=== PATIENT | male | born 1985 | race Caucasian/White ===

== ENCOUNTER 2023-09-21 20:20 | Emergency (ER) | payer OTHER, SELFPAY ==
--- NOTE | ~2023-09-21 | CT_ITS ---
EXAMINATION: CT ANGIOGRAM BRAIN, HEAD CLINICAL INFORMATION: Headaches with exertion COMPARISON: None. TECHNIQUE: Initial noncontrast head CT was performed. Test bolus sequences followed by intravenous administration 75 mL of Omnipaque 350. Helical imaging was performed in the axial plane from the skull base to the skull vertex. Delayed postcontrast imaging of the head was also performed. The data was processed at the ct mri technologist's workstation for generation of MIP sequences. Angled MIPs and volume rendered reformatted images were also generated at an offline 3D workstation. Stenoses are assessed in accordance with NASCET criteria unless otherwise indicated. DOSE LOWERING TECHNIQUES: This CT examination was performed using dose optimization techniques as appropriate, variously including the following: - Automated exposure control - Adjustment of mA and/or kV according to patient size (this includes techniques or standardized protocols for targeted exams were dose is matched to indication/reason for exam; i.e. extremities or head) - Use of iterative reconstruction technique DLP: 2397 mGy-cm FINDINGS: Brain CTA: There is normal opacification of major intracranial arteries. No focal flow-limiting stenosis, discrete proximal large artery occlusion, or saccular intradural aneurysm. Normal appearance of the intradural vertebral arteries. Normal appearance of the basilar and superior cerebellar arteries. Normally opacified posterior cerebral arteries bilaterally. Normal appearance of the intradural internal carotid arteries without focal stenosis. Normal appearance of the anterior cerebral and middle cerebral arteries without focal occlusion or stenosis. Normal anterior communicating artery. Normal arborization of the middle cerebral arteries. CT Head: No intracranial mass, hemorrhage, extra-axial collection, or midline shift. The lowery-white matter differentiation is preserved. No pathologic intra-axial enhancement or regional oligemia. No hydrocephalus. The mastoid air cells and paranasal sinuses remain well aerated. CT/CT angio head IMPRESSION: No acute intracranial findings. No vascular abnormality identified.
--- NOTE | 2023-09-21 20:38 | ED_ITS ---
HPI - Headache General Chief Complaint: Headache Stated Complaint: Severe headache for the past Time Seen by Provider: 09/22/23 01:58 Related Data Previous Rx's Medication Instructions Recorded ibuprofen 400 mg tablet 400 mg PO Q6H PRN pain #20 tabs 09/22/23 Allergies Allergy/AdvReac Type Severity Reaction Status Date / Time No Known Allergies Allergy Verified 09/21/23 20:50 [facility] Social History Advance Directives: No Advance Directives Information Provided: No Physical Exam 2 Vital Signs: Vital Signs: Last Vital Signs Temp 98.0 F 09/22/23 00:10 Pulse 56 09/22/23 00:10 Resp 20 09/22/23 00:10 BP 156/67 H 09/22/23 00:10 Pulse Ox 98 09/22/23 00:10 O2 Del Method Room Air 09/22/23 00:10 BMI result Body Mass Index 26.8 Course Course Course Narrative: This is an RME: Additional HPI, ROS, PE not included below will be deferred to primary provider. This is a [id number] presenting to the ER with complaints of episodic severe headache x 4 days. Patient states that he has had intermittent headaches. He states that on Wednesday he had a total of 4 headaches. He states that the headache got severe during intercourse. He states that he had difficulty walking at that time due to the pain which resolved after 2 hours. He states that he also has had severe pain with lifting heavy weights at the gym. He also noticed yesterday the headache got severe again during intercourse. 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 NIH score is 0. No recent headache or trauma. He is not on blood thinners. He is not on antibiotics steroids, no drug use or alcohol use. Plan: Basic labs. I discussed case with my attending physician Dr. Cain, will order CT angio of the head. >Please see full note from Dr. Man for further details. Medications Administered Discontinued Medications Generic Name Dose Route Start Last Admin Trade Name Freq PRN Reason Stop Dose Admin Iohexol 75 ml 09/22/23 04:02 09/22/23 04:02 Iohexol 350 Mg/Ml 100 Ml Infus..Btl IV 09/22/23 04:03 75 ml ONCE ONE Administration Medical Decision Making Lab Data 09/21/23 21:38 09/21/23 21:38 Labs: Lab Results 09/21/23 Range/Units 21:38 WBC 8.2 (4.8-10.8) X10*3/uL RBC 4.87 (4.60-5.80) X10*6/uL Hgb 15.6 (14.0-18.0) g/dl Hct 43.8 (42.0-52.0) % MCV 89.9 (80.0-98.0) fL MCH 32.0 (27.0-33.0) pg MCHC 35.6 (31.0-36.0) g/dl RDW 12.1 (11.0-16.0) % Plt Count 215 (160-400) X10*3/uL MPV 9.2 L (9.4-12.4) fL Immature Gran % (Auto) 0.1 (0.0-0.4) % Neut % (Auto) 48.6 (45-73) % Lymph % (Auto) 36.1 (20-40) % [place] % (Auto) 7.8 (2-11) % Eos % (Auto) 6.8 H (0-4) % Baso % (Auto) 0.6 (0-2) % Lymph # (Auto) 3.0 (1.2-4.9) X10*3/uL [place] # (Auto) 0.6 (0.1-1.2) X10*3/uL Eos # (Auto) 0.6 H (0.0-0.4) X10*3/uL Baso # (Auto) 0.1 (0.0-0.2) X10*3/uL Abs Immat Gran (auto) 0.01 (0.00-0.03) X10*3/uL Absolute Neuts (auto) 4.0 (2.0-8.3) x10*3/uL Absolute Nucleated RBC 0.000 (0.0-0.012) X10*3/uL Nucleated RBC % (auto) 0.0 (0.0-0.2) /100WBC Sodium 141 (135-145) mmol/L Potassium 3.8 (3.3-5.1) mmol/L Chloride 103 (96-108) mmol/L Carbon Dioxide 30 H (22-29) mmol/L Anion Gap 12 (12-20) BUN 11 (9-16) mg/dL Creatinine 1.09 (0.5-1.4) mg/dL Estim Creat Clear Calc 82.1 Estimated GFR > 60 Random Glucose 102 (60-115) mg/dL Calcium 9.6 (8.4-10.2) mg/dL Total Bilirubin 0.5 (0.0-1.0) mg/dL Direct Bilirubin 0.2 (0.0-0.5) mg/dL AST 29 (5-37) U/L ALT 41 H (0-40) U/L Alkaline Phosphatase 53 (39-117) U/L Total Protein 7.4 (6.5-8.0) g/dL Albumin 4.6 (3.5-5.0) g/dL Discharge Plan Discharge Clinical Impression: Headache Patient Disposition: Home, Self-Care Instructions: Acute Headache (DC) Prescriptions: New ibuprofen 400 mg tablet 400 mg PO Q6H PRN (Reason: pain) Qty: 20 0RF Referrals: Physician,Unknown J [Primary Care Provider] - 09/24/23 Interventions: ED Discharge Assessment Last Done: 09/22/23 06:35 Discharge Date/Time: 09/22/23 06:39
[2023-09-21 20:41] VITALS: BP 157/98; PULSE 69; RESP 20; TEMP 36.7; O2SAT 98; BMI 26.8
[2023-09-21 21:43] LABS: MANUAL DIFF FLAG NO
[2023-09-21 21:45] LABS: Basophils Absolute Auto 0.1 X10*3/uL (0.0-0.2); Basophils Percent Auto 0.6 % (0-2); Eosinophils Absolute Auto 0.6 X10*3/uL (0.0-0.4); Eosinophils Percent Auto 6.8 % (0-4); Hematocrit 43.8 % (42.0-52.0); Hemoglobin 15.6 g/dl (14.0-18.0); Imm Gran Abs Auto 0.01 X10*3/uL (0.00-0.03); Imm Gran Pct Auto 0.1 % (0.0-0.4); Lymphocytes Percent Auto 36.1 % (20-40); Mean Corpuscular HGB Conc 35.6 g/dl (31.0-36.0); Mean Corpuscular Volume 89.9 fL (80.0-98.0); Mean Platelet Volume 9.2 fL (9.4-12.4); Monocytes Absolute Auto 0.6 X10*3/uL (0.1-1.2); Monocytes Percent Auto 7.8 % (2-11); Neutrophils Percent Auto 48.6 % (45-73); Platelet Count 215 X10*3/uL (160-400); Red Blood Count 4.87 X10*6/uL (4.60-5.80); Red Cell Distribution Width 12.1 % (11.0-16.0); White Blood Count 8.2 X10*3/uL (4.8-10.8)
[2023-09-21 21:58] LABS: Alanine Aminotransferase 41 U/L (0-40); Albumin Level 4.6 g/dL (3.5-5.0); Alkaline Phosphatase 53 U/L (39-117); Anion Gap 12 (12-20); Aspartate Amino Transferase 29 U/L (5-37); Bilirubin Direct 0.2 mg/dL (0.0-0.5); Bilirubin Total 0.5 mg/dL (0.0-1.0); Blood Urea Nitrogen 11 mg/dL (9-16); Calcium 9.6 mg/dL (8.4-10.2); Carbon Dioxide 30 mmol/L (22-29); Chloride 103 mmol/L (96-108); Creatinine Clr Calc Pharmacy 82.1; Estimated Glomerular Filt Rate > 60; Glucose Random 102 mg/dL (60-115); Potassium 3.8 mmol/L (3.3-5.1); Sodium 141 mmol/L (135-145); Total Protein 7.4 g/dL (6.5-8.0)
[2023-09-22 00:10] VITALS: BP 156/67; PULSE 56; RESP 20; TEMP 36.7; O2SAT 98
--- OUTSIDE RECORDS SUMMARY | 2023-09-22 02:09 | XMS_ITS | Continuity of Care Document ---
Author Name Unknown Organization [facility] ter Address [address] [place] [id number]- Care Team Providers Care Rn Cardiac Name Role Phone Not on Staff, PCP Primary Care Physician Unavail able Encounter [facility] Date(s): 10/14/22 - 10/14/[address] [address]- Discharge Disposition: A-D/C Walkout Attending Physician: Not on Staff, Attending MD Admitting Physician: Not on Staff, Admitting MD Referring Physician: Not on Staff, Referring MD Allergies, Adverse Reactions, Alerts No Known Allergies Medications Augmentin 875 mg-125 mg oral tablet 1 tablet, By Mouth, 2 times a day, for 7 days, # 14 tablet, 0 Refills, Acute 10/21/22 12:42:00 EST,10/14/22 12:42:00 EST, Tablet, [id number], Partial fill upon patient request if the prescription is for a schedule II opioid drug., 73.2, kg, 1... Start Date: 10/14/22 Stop Date: 10/21/22 Status: Ordered Bactrim DS 800 mg-160 mg oral tablet 1 tablet, By Mouth, 2 times a day, for 7 days, # 14 tablet, 0 Refills, Acute 10/21/22 12:42:00 EST,10/14/22 12:42:00 EST, Tablet, [id number], Partial fill upon patient request if the prescription is for a schedule II opioid drug., 1 tablet By... Start Date: 10/14/22 Stop Date: 10/21/22 Status: Ordered Vital Signs Most recent to oldest [Reference Range]: 1 2 Weight 73.2 kg (10/14/22 12:23 AM) Oxygen Saturation [94-100 %] 99 % (10/14/22 3:03 AM) 98 % (10/14/22 12:22 AM) Pulse Rate [55-90 bpm] 97 bpm *H* (10/14/22 3:03 AM) 123 bpm *H* (10/14/22 12:22 AM) Blood Pressure [90-138/55-84 mm Hg] 145/ 98mm Hg *H* (10/14/22 3:03 AM) 142/96mm Hg *H* (10/14/22 12:22 AM) Respiratory Rate [16-30 br/min] 20 br/mi n (10/14/22 12:22 AM) Temperature [96.8-100.4 DegF] 98.6 DegF (10/14/22 3:03 AM) 97.6 DegF (10/14/22 12:22 AM) Mode of Delivery (Oxygen) Room air (10/14/22 3:03 AM) Room air (10/14/22 12:22 AM) Blood pressure sites Arm, left (10/14/22 3:03 AM) Arm, right (10/14/22 12:22 AM) Temperature Route Oral (10/14/22 3:03 AM) Oral (10/14/22 12:22 AM) Dry Weight 73.2 kg (10/14/22 12:23 AM) Weight Obtained Via Standing scale (10/14/22 12:23 AM) Dry Weight Obtained Via Standing scale (10/14/22 12:23 AM) Social History Social History Type Response Sex Male Patient Care team information Care Team Personnel Name: Not on Staff, PCP Position: [facility] Physician (General Medicine) Member Role: PCP
--- OUTSIDE RECORDS SUMMARY | 2023-09-22 02:09 | XMS_ITS | Continuity of Care Document ---
Author Name Unknown Organization [facility] ter Address [address] [place] [id number]- Care Team Providers Care Digital Media Designer Name Role Phone Not on Staff, PCP Primary Care Physician Unavail able Encounter [facility] Date(s): 10/14/22 - 10/14/[address] [phone]- Discharge Disposition: A-D/C Home Attending Physician: Kvng Faust MD Admitting Physician: Kvng Faust MD Referring Physician: Not on Staff, Referring [...] Date: 10/14/22 Stop Date: 10/21/22 Status: Ordered Results Radiology Reports * Exam Date Time Procedure Performing Provider Status 10/14/22 9:17 AM Forearm 2 Views Left Lisa Zaidi; Auth (Verified) Notes: (Forearm 2 Views Left) Reason For Exam: deep lac ant forearm, unknown object, ?FB;Trauma RESULT: Forearm 2 Views Left Forearm 2 Views Left Hx of Present Illness: LAC to left forearm. [place] [facility] [place] Reason: Trauma; deep lac ant forearm, unknown object, ?FB; Clinical Question(s): Fracture COMPARISON: None. FINDINGS: No fractures or bone lesions. No radiopaque foreign body. The visualized joint spaces are normal. Extensive and deep soft tissue laceration/deformity at the volar medial forearm. IMPRESSION: No osseous abnormality. Soft tissue defect WSN: [id number] Ordering Physician: Angelic Bruner Dictated By: Lukasz Song MD Dictated Date/Time: 10/14/22 9:20 am Reviewed By: Lukasz Song MD Signed By: Lukasz Song MD Signed Date/Time: 10/14/22 9:20 am Transcribed By: MARTA Transcribed Date/Time: 10/14/22 9:18 am Vital Signs Most recent to oldest [Reference Range]: 1 2 3 Oxygen Saturation [94-100 %] 100 % (10/14/22 11:57 AM) 98 % (10/14/22 7:42 AM) 97 % (10/14/22 5:41 AM) Pulse Rate [55-90 bpm] 85 bpm (10/14/22 11:57 AM) 78 bpm (10/14/22 7:42 AM) 95 bpm *H* (10/14/22 5:41 AM) Blood Pressure [90-138/55-84 mm Hg] 123/69mm Hg (10/14/22 11:57 AM) 128/75mm Hg (10/14/22 7:42 AM) 132/78mm Hg (10/14/22 5:41 AM) Respiratory Rate [16-30 br/min] 18 br/min (10/14/22 1:12 PM) 16 br/min (10/14/22 11:57 AM) 16 br/min (10/14/22 7:42 AM) Temperature [96.8-100.4 DegF] 98.5 DegF (10/14/22 11:57 AM) 97.9 DegF (10/14/22 7:42 AM) 97.8 DegF (10/14/22 5:41 AM) Mode of Delivery (Oxygen) Room air (10/14/22 11:57 AM) Room air (10/14/22 7:42 AM) Room air (10/14/22 5:41 AM) Blood pressure sites Arm, right (10/14/22 11:57 AM) Arm, left (10/14/22 7:42 AM) Arm, right (10/14/22 5:41 AM) Temperature Route Oral (10/14/22 11:57 AM) Oral (10/14/22 7:42 AM) Oral (10/14/22 5:41 AM) Social History Social History Type Response Sex Male Note * Angelic Arredondo: PERFORM, SIGN, VERIFY Event Display: Patient Education Handout Authored Date: XR Radius and Ulna - left 2 Views * LALI Reza S: TRANSCRIBE Lukasz Song MD: VERIFY Event Display: Result: Authored Date: Forearm 2 Views Left Hx of Present Illness: LAC to left forearm. [place] [facility] [place] Reason: Trauma; deep lac ant forearm, unknown object, ?FB; Clinical Question(s): Fracture COMPARISON: None. FINDINGS: No fractures or bone lesions. No radiopaque foreign body. The visualized joint spaces are normal. Extensive and deep soft tissue laceration/deformity at the volar medial forearm. IMPRESSION: No osseous abnormality. Soft tissue defect WSN: [id number] Ordering Physician: Angelic Bruner Dictated By: Lukasz Song MD Dictated Date/Time: 10/14/22 9:20 am Reviewed By: Lukasz Song MD Signed By: Lukasz Song MD Signed Date/Time: 10/14/22 9:20 am Transcribed By: MARTA Transcribed Date/Time: 10/14/22 9:18 am Patient Care team information Care Team Personnel Name: Not on Staff, PCP Position: [facility] Physician (General Medicine) Member Role: PCP Name: Kvng Faust MD Position: [facility] ED Medicine MD Member Role: Admitting Physician Address: Address: [address] [place] [id number] Name: Lisette Zhang RN Position: [facility] ED RN W/OE and Tasks Member Role: Patient Care Provider Name: Gabby Barton Position: [facility] ED TA [facility] Member Role: Environmental Engineering Technician Name: Angelic Arredondo Position: [facility] Associate Professional Member Role: ED Physician Hide And Skin Processing Worker Address: Address: [address] [place] [address]
--- NOTE | 2023-09-22 03:31 | ED.HA ---
HPI - Headache General Chief Complaint: Headache Stated Complaint: Severe headache for the past Time Seen by Provider: 09/22/23 01:58 History of Present Illness HPI Narrative: Patient is a 38-year-old male presents today with having headaches. The headache is in the back. Radiates to the front. It happened when patient was having intercourse. Patient has headache the next day with exertion as well. Came to the ED for further evaluation. There is no focal weakness. There is no nausea no vomiting. No history of migraine. Patient is from home. No history of sudden in the family. Patient denies any cough congestion upper respiratory symptoms. Related Data Previous Rx's Medication Instructions Recorded ibuprofen 400 mg tablet 400 mg PO Q6H PRN pain #20 tabs 09/22/23 Allergies Allergy/AdvReac Type Severity Reaction Status Date / Time No Known Allergies Allergy Verified 09/21/23 20:50 Review of Systems Review of Systems: Positive headache Yes all other systems are reviewed and are negative PMFSH Past Medical History Attestation statement: The following information was validated with the patient. Social History Advance Directives: No Advance Directives Information Provided: No Physical Exam Vital Signs: Vital Signs: Last Vital Signs Temp 98.0 F 09/22/23 00:10 Pulse 56 09/22/23 00:10 Resp 20 09/22/23 00:10 BP 156/67 H 09/22/23 00:10 Pulse Ox 98 09/22/23 00:10 O2 Del Method Room Air 09/22/23 00:10 BMI result Body Mass Index 26.8 Appearance: Alert. Oriented X3. No acute distress. Eyes: Pupils equal, round and reactive to light. ENT: Pharynx normal. Neck: Normal inspection. Neck supple. No lymph nodes noted. No crepitus CVS: Normal heart rate and rhythm. Pulses normal. Normal S1 and S2 Respiratory: No respiratory distress. Breath sounds normal. No Wheezing. No rales Abdomen: Soft and nontender. No rigidity. No distention. good BS x4 Skin: Skin warm and dry. Normal skin color. Normal skin turgor. Extremities: No lower extremity edema. Neurovascular intact to all extremities. No Lacerations. No Rash Neuro: Oriented X 3. No motor deficit. No sensory deficit. Moving all extermities. No slurred speech Medications Administered Discontinued Medications Generic Name Dose Route Start Last Admin Trade Name Katt PRN Reason Stop Dose Admin Iohexol 75 ml 09/22/23 04:02 09/22/23 04:02 Iohexol 350 Mg/Ml 100 Ml Infus..Btl IV 09/22/23 04:03 75 ml ONCE ONE Administration Medical Decision Making Medical Decision Making [facility] Narrative: Patient had headache that seems exertional. Neurologically intact well-appearing. Because patient's headaches been ongoing for greater than 6 hours. A CTA was done to rule out the possibility of aneurysm or bleed. There is no evidence of bleeding. There is no evidence of aneurysm. Patient neurologically intact. Will discharge patient home patient's symptoms not consistent with meningitis. Patient's did not have any gross mass noted on CT. He is currently in stable condition pain is controlled. We will closely follow up on an outpatient basis. Differential Diagnosis Differential Diagnoses: The differential diagnosis associated with the presentation includes Intracranial bleed, cerebral aneurysm, intracranial mass Admission/Observation Consideration of admission/observation: Escalation of care including admission/observation considered Patient's symptom control well appearing no distress. Lab Data [facility] Lab Attestation statement: I reviewed the patient's lab results. 09/21/23 21:38 09/21/23 21:38 Labs: Lab Results 09/21/23 Range/Units 21:38 WBC 8.2 (4.8-10.8) X10*3/uL RBC 4.87 (4.60-5.80) X10*6/uL Hgb 15.6 (14.0-18.0) g/dl Hct 43.8 (42.0-52.0) % MCV 89.9 (80.0-98.0) fL MCH 32.0 (27.0-33.0) pg MCHC 35.6 (31.0-36.0) g/dl RDW 12.1 (11.0-16.0) % Plt Count 215 (160-400) X10*3/uL MPV 9.2 L (9.4-12.4) fL Immature Gran % (Auto) 0.1 (0.0-0.4) % Neut % (Auto) 48.6 (45-73) % Lymph % (Auto) 36.1 (20-40) % [place] % (Auto) 7.8 (2-11) % Eos % (Auto) 6.8 H (0-4) % Baso % (Auto) 0.6 (0-2) % Lymph # (Auto) 3.0 (1.2-4.9) X10*3/uL [place] # (Auto) 0.6 (0.1-1.2) X10*3/uL Eos # (Auto) 0.6 H (0.0-0.4) X10*3/uL Baso # (Auto) 0.1 (0.0-0.2) X10*3/uL Abs Immat Gran (auto) 0.01 (0.00-0.03) X10*3/uL Absolute Neuts (auto) 4.0 (2.0-8.3) x10*3/uL Absolute Nucleated RBC 0.000 (0.0-0.012) X10*3/uL Nucleated RBC % (auto) 0.0 (0.0-0.2) /100WBC Sodium 141 (135-145) mmol/L Potassium 3.8 (3.3-5.1) mmol/L Chloride 103 (96-108) mmol/L Carbon Dioxide 30 H (22-29) mmol/L Anion Gap 12 (12-20) BUN 11 (9-16) mg/dL Creatinine 1.09 (0.5-1.4) mg/dL Estim Creat Clear Calc 82.1 Estimated GFR > 60 Random Glucose 102 (60-115) mg/dL Calcium 9.6 (8.4-10.2) mg/dL Total Bilirubin 0.5 (0.0-1.0) mg/dL Direct Bilirubin 0.2 (0.0-0.5) mg/dL AST 29 (5-37) U/L ALT 41 H (0-40) U/L Alkaline Phosphatase 53 (39-117) U/L Total Protein 7.4 (6.5-8.0) g/dL Albumin 4.6 (3.5-5.0) g/dL Independent Interpretation I performed an independent interpretation of an: CT Scan (CTA of the head showed no gross bleeding.) Radiology Impression Discussion of test interpretation with radiology: I have reviewed the radiologist's reading. Independent Historian Clinical information obtained from an independent historian. History obtained from or confirmed by: Spouse Prescription Management I considered prescription management with: Pain Medication Discharge Plan Discharge Clinical Impression: Headache Patient Disposition: Home, Self-Care Instructions: Acute Headache (DC) Prescriptions: New ibuprofen 400 mg tablet 400 mg PO Q6H PRN (Reason: pain) Qty: 20 0RF Referrals: Physician,Unknown J [Primary Care Provider] - 09/24/23
[2023-09-22] MEDS: iohexoL 350 MG/ML 100 ML INFUS..BTL 75 ML IV (04:02)
== END 2023-09-22 06:39 | disposition home or self-care (01) ==
PROVIDERS: Physician Assistant Medical; Emergency Provider Emergency Medicine Emergency Medical Services
DX: R51.9 Headache, unspecified (principal); R93.0 Abnormal findings on diagnostic imaging of skull and head, not elsewhere classified
CPT/HCPCS: 36415; 70496; 80048; 80076; 85025; 99283; 99284; Q9967